=== PATIENT | male | born 1985 | race Caucasian/White ===

== ENCOUNTER 2017-10-12 12:34 | Day surgery (SDC) | payer OTHER ==
[2017-10-12] MEDS: BUPIVACAINE 0.25% (MPF) 30 ML INJ
[~2017-10-12 12:34] MED LIST: CLINDAMYCIN 900 MG/50 ML D5W IVPB IVPB
[2017-10-12] MEDS ORDERED: hydrALAzine 20 MG INJ IV (15:00)
[2017-10-12] MEDS ORDERED: ONDANSETRON 4 MG INJ IV (15:00)
[2017-10-12] MEDS ORDERED: OXYCODONE/ACETAMINOPHEN (5/325) TAB PO ×2 (15:00)
[2017-10-12] MEDS ORDERED: FENTAnyl 50 MCG/ML VIAL IV ×2 (15:00)
[2017-10-12] MEDS ORDERED: PROCHLORPERAZINE 10 MG INJ IV (15:00)
[2017-10-12] MEDS ORDERED: DIPHENHYDRAMINE 50 MG INJ IV (15:00)
[2017-10-12] MEDS ORDERED: HYDROmorphONE 1 MG/5 ML IV SYRINGE IV ×2 (15:00)
[2017-10-12] MEDS ORDERED: MIDAZOLAM 1 MG/ML 2 ML INJ (15:02)
[2017-10-12] MEDS ORDERED: SUCCINYLCHOLINE CHLORIDE 100 MG/5 ML SYG IV (15:22)
[2017-10-12] MEDS ORDERED: LIDOCAINE 2% (SDV) 5 ML INJ (15:22)
[2017-10-12] MEDS ORDERED: PROPOFOL 40 ML (15:23)
[2017-10-12] MEDS ORDERED: ROCURONIUM 50 MG INJ ×2 (15:23→15:38)
[2017-10-12] MEDS ORDERED: FAMOTIDINE 20 MG INJ (15:31)
[2017-10-12] MEDS ORDERED: DEXAMETHASONE 4 MG/ML 1 ML INJ (15:31)
[2017-10-12] MEDS ORDERED: ONDANSETRON 4 MG INJ (15:31)
[2017-10-12] MEDS ORDERED: ACETAMINOPHEN 1000MG/100ML IV 100 ML (15:36)
[2017-10-12] MEDS ORDERED: SUGAMMADEX SODIUM 200 MG/2 ML VIAL IV ×3 (15:58→16:02)
[2017-10-12] MEDS ORDERED: CEFAZOLIN 2 GM/50 ML (PMX) 50 ML IVPB (16:00)
[2017-10-12] MEDS ORDERED: SOD CHLORIDE 0.9% 1,000 ML IV (16:00)
[2017-10-12] MEDS ORDERED: KETOROLAC 30 MG INJ (16:00)
[2017-10-12] MEDS: LABETALOL HCL 20MG INJ IV (16:38)
[2017-10-12] MEDS: MEPERIDINE 25 MG INJ IV (17:05)
[2017-10-12] MEDS: FENTAnyl 50 MCG/ML VIAL IV (17:06)
[2017-10-12] MEDS: HYDROmorphONE 1 MG/5 ML IV SYRINGE IV (17:07)
[2017-10-12] MEDS: HYDROCODONE/APAP (5/325) TAB PO (17:55)
== END 2017-10-12 18:00 | disposition home or self-care (01) ==
LOC: SDS 12:34
DX: K80.10 Calculus of gallbladder with chronic cholecystitis without obstruction (principal); I10 Essential (primary) hypertension; E66.01 Morbid (severe) obesity due to excess calories; Z68.43 Body mass index [BMI] 50.0-59.9, adult
CPT/HCPCS: 47562; 88304; 93005